=== PATIENT | male | born 1960 ===

== ENCOUNTER 2017-03-12 21:37 | Emergency (ER) | payer SELFPAY ==
[2017-03-12] MEDS ORDERED: ADACEL/BOOSTRIX VACCINE (DIPHTH/PERTUSS/ACELL/TETANUS)0.5ML SYR (90715) IM ONE (22:45)
== END 2017-03-12 23:43 | disposition left against medical advice (07) ==
LOC: M ED 21:37 → EDBD 21:37 → M ED 23:43
DX: S01.01XA Laceration without foreign body of scalp, initial encounter (principal); S00.83XA Contusion of other part of head, initial encounter; Y04.8XXA Assault by other bodily force, initial encounter; Y92.410 Unspecified street and highway as the place of occurrence of the external cause; Y93.89 Activity, other specified; Y99.8 Other external cause status; Z88.5 Allergy status to narcotic agent; F17.210 Nicotine dependence, cigarettes, uncomplicated